=== PATIENT | female | born 1955 | race Two or more races ===

== ENCOUNTER 2024-01-10 03:16 | Inpatient (IN) | payer MEDICAID, OTHER ==
[2024-01-10] VITALS (85 sets, daily range): BP systolic 85–167; BP diastolic 40–104; PULSE 46–95; RESP 9–32; TEMP 97.9–98.4; O2SAT 92–100
[~2024-01-10] VITALS: Ht 157.5 cm; Wt 74.3 kg
[2024-01-10] MEDS: HEPARIN SODIUM (PORCINE) 5000 UNITS/ML 1ML VIAL IV ONE ×3 (03:19→22:18)
[2024-01-10] MEDS: MORPHINE SULFATE INJ 2 MG/ml SYRG IV ONE (03:20)
[2024-01-10] MEDS: NITROGLYCERIN 2% OINT 1GM PKG TD ONE ×2 (03:20→03:47)
[2024-01-10] MEDS: ONDANSETRON HCL 4 MG/2 ML VIAL IV ONE (03:20)
[2024-01-10 03:38] LABS: Basophils # (auto) 0.1 10 ^3/uL (0-0.2); Basophils % (auto) 0.6 % (0.0-2.0); Eosinophils # (auto) 0.2 10 ^3/uL (0-0.8); Eosinophils % (auto) 1.9 % (0.0-7.0); Hematocrit 40.7 % (36.0-46.0); Hemoglobin 13.5 g/dL (12.2-16.2); Lymphocytes # (auto) 2.3 10 ^3/uL (0.4-5.4); Lymphocytes % (auto) 24.7 % (10.0-50.0); Mean Corpuscular Hemoglobin 29.1 pg (28.0-32.0); Mean Corpuscular Hgb Conc. 33.2 g/dL (32.0-36.0); Mean Corpuscular Volume 87.6 fL (80.0-100.0); Monocytes # (auto) 0.6 10 ^3/uL (0-1.3); Monocytes % (auto) 6.9 % (0.0-12.0); Neutrophils # (auto) 6.1 10 ^3/uL (1.6-8.6); Neutrophils % (auto) 65.9 % (37.0-80.0); Red Blood Cells 4.64 10^6/uL (4.0-5.20); White Blood Cell 9.2 10^3/uL (4.4-10.8)
[2024-01-10] MEDS: MORPHINE SULFATE INJ 2 MG/ml SYRG ONE (03:47)
[2024-01-10] MEDS: ONDANSETRON HCL 4 MG/2 ML VIAL ONE (03:47)
[2024-01-10] MEDS: HEPARIN SODIUM (PORCINE) 5000 UNITS/ML 1ML VIAL ONE (03:48)
[2024-01-10] MEDS ORDERED: METF-371 PO (03:52)
[2024-01-10] MEDS ORDERED: GLIP5TAB21 PO (03:52)
[2024-01-10 03:56] LABS: Alanine Aminotransferase 12 U/L (7-40); Albumin 3.8 g/dL (3.2-4.8); Alkaline Phosphatase 135 U/L (46-116); Anion Gap 7 (5-15); Aspartate Aminotransferase 14 U/L (13-40); BUN/Creatinine Ratio 19.6 (10.0-20.0); Bilirubin, Total 0.4 mg/dL (0.2-1.0); Blood Urea Nitrogen 18 mg/dL (9-23); Calcium 9.3 mg/dL (8.7-10.4); Carbon Dioxide 23 mmol/L (20-30); Chloride 100 mmol/L (98-107); Magnesium 1.6 mg/dL (1.6-2.6)
[2024-01-10] MEDS: MIDAZOLAM HCL 2MG/2ML 2ml VIAL (1mg/ml) ONE (04:04)
[2024-01-10] MEDS: fentaNYL CITRATE 100 MCG/2 ML VL ONE (04:04)
[2024-01-10] MEDS: SODIUM CHL 0.9% 50 ML ONE (04:04)
[2024-01-10] MEDS: ANGIOMAX 250 MG VIAL IV ONE (04:04)
[2024-01-10] MEDS: LIDOCAINE 2%HCL (LOCAL ANESTH.) INJ 10ml MDV ONE (04:06)
[2024-01-10 04:16] LABS: Sodium 130 mmol/L (136-145)
[2024-01-10 04:17] LABS: Glucose 435 mg/dL (74-106)
[2024-01-10] MEDS: LABETALOL HCL 5 MG/ML ML 20ML VIAL IV ONE (04:23)
[2024-01-10] MEDS: EPTIFIBATIDE INJ (2MG/ML) 10ML VIAL IV ONE (04:35)
[2024-01-10 04:40] LABS: Urine Bacteria MANY /hpf (None Seen); Urine Blood Negative /uL (Negative); Urine Budding Yeast OCCASIONAL /hpf (None Seen); Urine Clarity Turbid (Clear); Urine Hyaline Cast FEW /lpf (0 - 2); Urine Mucus FEW (None Seen); Urine Protein, UAD 2+ (Negative); Urine Specific Gravity 1.016 (1.001-1.035); Urine Urobilinogen Normal (Negative); Urine WBC 61 /hpf (0 - 5); Urine pH 6.5 (5.0-9.0)
[2024-01-10 04:51] LABS: Urine Color STRAW (Yellow)
[2024-01-10] MEDS: niCARdipine 25 MG/10 ML VIAL IV ONE (04:51)
[2024-01-10] MEDS: IODIXANOL 320MG/ML 100ML BTL IV ONE (04:55)
[2024-01-10] MEDS: NOREPINEPHRINE 8 MG/250ML KIT 250 ML IV ONE (05:13)
[2024-01-10] MEDS: HEPARIN DRIP/D5W 100UNITS/ML 250 ML IV ONE (05:31)
[2024-01-10] MEDS: CLOPIDOGREL BISULFATE 75 MG TAB ONE ×2 (05:39→05:41)
[2024-01-10] MEDS: HEPARIN DRIP/D5W 100UNITS/ML 250 ML IV SCH (07:00)
[2024-01-10] MEDS ORDERED: NITROGLYCERIN 0.4 MG SL TAB SL PRN (07:00)
[2024-01-10] MEDS ORDERED: MORPHINE SULFATE INJ 2 MG/ml SYRG IV PRN (07:00)
[2024-01-10] MEDS: ONDANSETRON HCL 4 MG/2 ML VIAL IV SCH (07:00)
[2024-01-10] MEDS: MORPHINE SULFATE INJ 2 MG/ml SYRG IV SCH (07:00)
[2024-01-10 07:10] LABS: INR 0.97 (0.9-1.15); Partial Thromboplastin Time 24.3 SEC (24.5-34.5); Prothrombin Time 10.3 sec (9.3-11.8)
[2024-01-10] MEDS ORDERED: DEXTROSE (50%) 50ML SYRG IV PRN (07:45)
[2024-01-10] MEDS: CARVEDILOL 3.125 MG TAB PO SCH (08:39)
[2024-01-10] MEDS: CARVEDILOL 3.125 MG TAB PO ONE (10:03)
[2024-01-10] MEDS: cefTRIAXone 1GM/50ML D5W 50 ML IV ONE (10:03)
[2024-01-10] MEDS: PANTOPRAZOLE 40 MG/10 ML VIAL INJ IV SCH (10:04)
[2024-01-10] MEDS: LISINOPRIL 5 MG TAB PO SCH (10:04)
[2024-01-10] MEDS: ACCU-CHEK COMFORT CURVE STRIP VI SCH (10:05)
[2024-01-10] MEDS: EPTIFIBATIDE DRIP(0.75MG/ML) 100 ML IV SCH (10:08)
[2024-01-10] MEDS: InsuLIN REG 1unit/0.01ml Soln (100units/ml) SC SCH (10:17)
[2024-01-10 13:30] LABS: INR 0.98 (0.9-1.15); Partial Thromboplastin Time 29.2 SEC (24.5-34.5); Prothrombin Time 10.4 sec (9.3-11.8)
[2024-01-10] MEDS: NOREPINEPHRINE 8 MG/250ML KIT 250 ML IV SCH ×2 (17:31→18:30)
[2024-01-10] MEDS ORDERED: ONDANSETRON HCL 4 MG/2 ML VIAL IV PRN (20:00)
[2024-01-10] MEDS: MAGNESIUM SULFATE 1GM/100ML 100 ML IV SCH (20:48)
[2024-01-10] MEDS: FUROSEMIDE 40 MG/4 ML VIAL IV ONE (20:48)
[2024-01-10 22:00] LABS: INR 0.97 (0.9-1.15); Partial Thromboplastin Time 30.4 SEC (24.5-34.5); Prothrombin Time 10.3 sec (9.3-11.8)
[2024-01-10] MEDS: ATORVASTATIN 20 MG TAB PO SCH (22:17)
[2024-01-10] MEDS: MORPHINE SULFATE INJ 2 MG/ml SYRG IV PRN (22:34)
[2024-01-11] VITALS (88 sets, daily range): BP systolic 88–143; BP diastolic 46–81; PULSE 56–100; RESP 12–26; TEMP 97.7–98.4; O2SAT 92–99
[2024-01-11 04:29] LABS: Basophils # (auto) 0 10 ^3/uL (0-0.2); Basophils % (auto) 0.3 % (0.0-2.0); Eosinophils # (auto) 0.1 10 ^3/uL (0-0.8); Eosinophils % (auto) 0.6 % (0.0-7.0); Hematocrit 38.2 % (36.0-46.0); Hemoglobin 12.7 g/dL (12.2-16.2); Lymphocytes % (auto) 16.7 % (10.0-50.0); Mean Corpuscular Hemoglobin 29.6 pg (28.0-32.0); Mean Corpuscular Hgb Conc. 33.2 g/dL (32.0-36.0); Monocytes % (auto) 7.9 % (0.0-12.0); Neutrophils % (auto) 74.5 % (37.0-80.0); Red Blood Cells 4.29 10^6/uL (4.0-5.20); White Blood Cell 12.1 10^3/uL (4.4-10.8)
[2024-01-11 04:51] LABS: Alanine Aminotransferase 68 U/L (7-40); Albumin 3.3 g/dL (3.2-4.8); Alkaline Phosphatase 84 U/L (46-116); Anion Gap 10 (5-15); Aspartate Aminotransferase 304 U/L (13-40); BUN/Creatinine Ratio 20.2 (10.0-20.0); Bilirubin, Total 0.5 mg/dL (0.2-1.0); Blood Urea Nitrogen 20 mg/dL (9-23); Calcium 9.1 mg/dL (8.5-10.1); Carbon Dioxide 21 mmol/L (20-30); Chloride 100 mmol/L (98-107); Glucose 155 mg/dL (74-106); Potassium 3.5 mmol/L (3.5-5.1); Sodium 131 mmol/L (136-145); Total Protein 6.3 g/dL (5.7-8.2)
[2024-01-11 05:09] LABS: Magnesium 2.7 mg/dL (1.6-2.6)
[2024-01-11] MEDS: Glucerna Carbsteady SHAKE Vanilla 8oz PO SCH (09:36)
[2024-01-11] MEDS: CLOPIDOGREL BISULFATE 75 MG TAB PO SCH (10:08)
[2024-01-11] MEDS: FUROSEMIDE 20 MG/2 ML VIAL IV SCH (10:08)
[2024-01-11] MEDS: ASPirin 81 mg TAB PO SCH (10:08)
[2024-01-11 10:30] LABS: INR 0.97 (0.9-1.15); Partial Thromboplastin Time 56.9 SEC (24.5-34.5); Prothrombin Time 10.3 sec (9.3-11.8)
[2024-01-11] MEDS: EPTIFIBATIDE DRIP(0.75MG/ML) 100 ML IV ONE (11:09)
[2024-01-11] MEDS: EPTIFIBATIDE DRIP(0.75MG/ML) 100 ML IV SCH (11:53)
[2024-01-11] MEDS: DOCUSATE SOD 100 MG CAP PO PRN (13:02)
[2024-01-11] MEDS: POTASSIUM CHL 20 Meq TABLET PO ONE (13:02)
[2024-01-11] MEDS: cefTRIAXone 1GM/50ML D5W 50 ML IV ONE (13:36)
[2024-01-11 16:15] LABS: INR 0.96 (0.9-1.15); Partial Thromboplastin Time 45.3 SEC (24.5-34.5); Prothrombin Time 10.2 sec (9.3-11.8)
[2024-01-11] MEDS: ANGIOMAX 250 MG VIAL IV ONE (16:56)
[2024-01-11] MEDS: MIDAZOLAM HCL 2MG/2ML 2ml VIAL (1mg/ml) ONE ×2 (16:56→20:09)
[2024-01-11] MEDS: fentaNYL CITRATE 100 MCG/2 ML VL ONE (16:56)
[2024-01-11] MEDS: IODIXANOL 320MG/ML 100ML BTL IV ONE ×2 (16:57→18:47)
[2024-01-11] MEDS: LIDOCAINE 2%HCL (LOCAL ANESTH.) INJ 20ML MDV ONE (16:57)
[2024-01-11] MEDS: SODIUM CHL 0.9% 0 ML ONE (16:57)
[2024-01-11] MEDS ORDERED: HEPARIN DRIP/D5W 100UNITS/ML 250 ML IV SCH (17:30)
[2024-01-11] MEDS: VERAPAMIL 2.5MG/ML INJ 2ML VIAL IV ONE (17:45)
[2024-01-11] MEDS: LIDOCAINE 2% (LOCAL ANESTH.) PF 5ml SDV ONE (19:23)
[2024-01-12] VITALS (26 sets, daily range): BP systolic 103–156; BP diastolic 50–80; PULSE 78–98; RESP 12–22; TEMP 98–99.6; O2SAT 94–100
[2024-01-12] MEDS: INSULIN LANTUS (GLARGINE) 1 /0.01ml (100units/ml) SC ONE (00:09)
[2024-01-12 03:57] LABS: Basophils # (auto) 0 10 ^3/uL (0-0.2); Basophils % (auto) 0.3 % (0.0-2.0); Eosinophils # (auto) 0.1 10 ^3/uL (0-0.8); Eosinophils % (auto) 0.7 % (0.0-7.0); Hematocrit 39.2 % (36.0-46.0); Hemoglobin 13.2 g/dL (12.2-16.2); Lymphocytes # (auto) 1.5 10 ^3/uL (0.4-5.4); Lymphocytes % (auto) 15.7 % (10.0-50.0); Mean Corpuscular Hemoglobin 29.5 pg (28.0-32.0); Mean Corpuscular Hgb Conc. 33.5 g/dL (32.0-36.0); Monocytes # (auto) 0.8 10 ^3/uL (0-1.3); Monocytes % (auto) 8.5 % (0.0-12.0); Neutrophils # (auto) 7.2 10 ^3/uL (1.6-8.6); Neutrophils % (auto) 74.8 % (37.0-80.0); Nucleated Red Blood Cells % 0.1 %; Red Blood Cells 4.46 10^6/uL (4.0-5.20); Red Cell Distribution Width 14.2 % (11.8-14.3); White Blood Cell 9.6 10^3/uL (4.4-10.8)
[2024-01-12] MEDS: EPTIFIBATIDE DRIP(0.75MG/ML) 100 ML IV ONE (04:04)
[2024-01-12 04:10] LABS: INR 0.92 (0.9-1.15); Partial Thromboplastin Time 26.9 SEC (24.5-34.5); Prothrombin Time 9.8 sec (9.3-11.8)
[2024-01-12 04:16] LABS: Alanine Aminotransferase 50 U/L (7-40); Albumin 3.4 g/dL (3.2-4.8); Alkaline Phosphatase 104 U/L (46-116); Anion Gap 6 (5-15); Aspartate Aminotransferase 139 U/L (13-40); Bilirubin, Total 0.4 mg/dL (0.2-1.0); Blood Urea Nitrogen 27 mg/dL (9-23); Calcium 9.1 mg/dL (8.5-10.1); Carbon Dioxide 23 mmol/L (20-30); Chloride 103 mmol/L (98-107); Glucose 328 mg/dL (74-106); Potassium 4.4 mmol/L (3.5-5.1); Sodium 132 mmol/L (136-145); Total Protein 6.6 g/dL (5.7-8.2)
[2024-01-12] MEDS: cefTRIAXone 1GM/50ML D5W 50 ML IV SCH (08:47)
[2024-01-12] MEDS: EPTIFIBATIDE DRIP(0.75MG/ML) 100 ML IV SCH (09:45)
[2024-01-12] MEDS: INSULIN LANTUS (GLARGINE) 1 /0.01ml (100units/ml) SC SCH (10:00)
[2024-01-13] VITALS (8 sets, daily range): BP systolic 103–127; BP diastolic 53–68; PULSE 82–98; RESP 17–20; TEMP 98.2–98.8; O2SAT 92–98
[2024-01-13] MEDS ORDERED: DEXTROSE (50%) 50ML SYRG IV PRN (10:15)
[2024-01-13] MEDS: ACETAMINOPHEN 500 MG TAB PO PRN (11:10)
[2024-01-13] MEDS: ACCU-CHEK COMFORT CURVE STRIP VI SCH (12:17)
[2024-01-13] MEDS: InsuLIN REG 1unit/0.01ml Soln (100units/ml) SC SCH ×2 (12:20→21:46)
[2024-01-13 13:13] LABS: Magnesium 2.2 mg/dL (1.6-2.6)
[2024-01-14] VITALS (8 sets, daily range): BP systolic 103–123; BP diastolic 56–78; PULSE 69–91; RESP 17–20; TEMP 97.8–98.4; O2SAT 90–98
[2024-01-14 06:21] LABS: Basophils # (auto) 0 10 ^3/uL (0-0.2); Basophils % (auto) 0.3 % (0.0-2.0); Eosinophils # (auto) 0.2 10 ^3/uL (0-0.8); Eosinophils % (auto) 1.8 % (0.0-7.0); Hematocrit 33.7 % (36.0-46.0); Hemoglobin 11.2 g/dL (12.2-16.2); Lymphocytes # (auto) 1.4 10 ^3/uL (0.4-5.4); Lymphocytes % (auto) 12.6 % (10.0-50.0); Mean Corpuscular Hemoglobin 29.6 pg (28.0-32.0); Mean Corpuscular Hgb Conc. 33.4 g/dL (32.0-36.0); Mean Corpuscular Volume 88.6 fL (80.0-100.0); Monocytes # (auto) 0.9 10 ^3/uL (0-1.3); Monocytes % (auto) 8.4 % (0.0-12.0); Neutrophils # (auto) 8.6 10 ^3/uL (1.6-8.6); Neutrophils % (auto) 76.9 % (37.0-80.0); Red Cell Distribution Width 14.1 % (11.8-14.3); White Blood Cell 11.2 10^3/uL (4.4-10.8)
[2024-01-14 06:27] LABS: Calcium 9.6 mg/dL (8.5-10.1); Chloride 98 mmol/L (98-107); Potassium 4.9 mmol/L (3.5-5.1); Sodium 129 mmol/L (136-145)
[2024-01-14 06:28] LABS: Anion Gap 6 (5-15); Carbon Dioxide 25 mmol/L (20-30)
[2024-01-14 06:34] LABS: BUN/Creatinine Ratio 36.4 (10.0-20.0); Blood Urea Nitrogen 36 mg/dL (9-23); Glucose 178 mg/dL (74-106)
[2024-01-14 07:20] LABS: Magnesium 2.1 mg/dL (1.6-2.6)
[2024-01-14] MEDS: FUROSEMIDE 40 MG TAB PO SCH (09:42)
[2024-01-15] VITALS (7 sets, daily range): BP systolic 107–129; BP diastolic 54–69; PULSE 66–79; RESP 16–18; TEMP 97.7–98.8; O2SAT 95–98
[2024-01-15 07:17] LABS: Anion Gap 7 (5-15); Carbon Dioxide 25 mmol/L (20-30); Chloride 101 mmol/L (98-107); Potassium 4.3 mmol/L (3.5-5.1); Sodium 133 mmol/L (136-145)
[2024-01-15 07:18] LABS: Calcium 9.5 mg/dL (8.5-10.1)
[2024-01-15 07:23] LABS: BUN/Creatinine Ratio 32.6 (10.0-20.0); Blood Urea Nitrogen 30 mg/dL (9-23); Glucose 91 mg/dL (74-106)
[2024-01-15] MEDS: FUROSEMIDE 20 MG/2 ML VIAL IV ONE (12:50)
[2024-01-15] MEDS: PANTOPRAZOLE 40 MG TAB PO ONE (12:50)
[2024-01-15] MEDS: HYDROcodone-ACET 5/325MG TAB PO PRN (21:12)
[2024-01-16 01:00] VITALS: BP 122/62; PULSE 74; RESP 20; TEMP 98.2; O2SAT 100
[2024-01-16 05:00] VITALS: BP 110/56; PULSE 76; RESP 19; TEMP 98; O2SAT 96
[2024-01-16 08:00] VITALS: PULSE 64; PULSE 71; RESP 17; O2SAT 91
[2024-01-16 08:33] VITALS: BP 115/58; PULSE 64; RESP 17; TEMP 97.7; O2SAT 91
[2024-01-16] MEDS: PANTOPRAZOLE 40 MG TAB PO SCH (10:13)
[2024-01-16] MEDS ORDERED: ATOR-507 PO ×2 (10:27→12:24)
[2024-01-16] MEDS ORDERED: CLOP75TA70 PO ×2 (10:27→12:24)
[2024-01-16] MEDS ORDERED: ASPI-325 PO ×2 (10:27→12:24)
[2024-01-16] MEDS ORDERED: NITR0.4S29 SL ×2 (10:27→12:24)
[2024-01-16] MEDS ORDERED: LEVO500T91 PO ×2 (10:27→12:25)
[2024-01-16] MEDS ORDERED: CARV-214 PO ×2 (10:27→12:24)
[2024-01-16] MEDS ORDERED: FURO40TA4 PO ×2 (10:27→12:24)
[2024-01-16 10:55] LABS: Anion Gap 6 (5-15); Calcium 9.5 mg/dL (8.5-10.1); Carbon Dioxide 25 mmol/L (20-30); Chloride 99 mmol/L (98-107); Potassium 4.8 mmol/L (3.5-5.1); Sodium 130 mmol/L (136-145)
[2024-01-16 11:01] LABS: BUN/Creatinine Ratio 30.2 (10.0-20.0); Blood Urea Nitrogen 32 mg/dL (9-23); Glucose 278 mg/dL (74-106)
[2024-01-16 11:41] VITALS: BP 115/58; PULSE 77; TEMP 36.5
[2024-01-16 11:54] VITALS: BP 104/61; PULSE 78; RESP 16; TEMP 97.4; O2SAT 95
[2024-01-16] MEDS ORDERED: LISI20TA56 PO (12:24)
== END 2024-01-16 16:00 | disposition home or self-care (01) | DRG 174 ==
LOC: ER 03:16 → EDBD 03:16 → ER 04:10 → CATH 1 06:44 → TELE 06:50 → ICU WEST 06:51 → TELE-CENTR 01-12 15:30
PROVIDERS: ADMIT Internal Medicine; ATTEND Internal Medicine
PROC: 027035Z Dilation of Coronary Artery, One Artery with Two Drug-eluting Intraluminal Devices, Percutaneous Approach (ICD-10-PCS; principal; 2024-01-10)
PROC: 5A02210 Assistance with Cardiac Output using Balloon Pump, Continuous (ICD-10-PCS; 2024-01-10)
PROC: B211YZZ Fluoroscopy of Multiple Coronary Arteries using Other Contrast (ICD-10-PCS; 2024-01-10)
PROC: 02C03ZZ Extirpation of Matter from Coronary Artery, One Artery, Percutaneous Approach (ICD-10-PCS; 2024-01-10)
PROC: 4A133B1 Monitoring of Arterial Pressure, Peripheral, Percutaneous Approach (ICD-10-PCS; 2024-01-10)
PROC: 4A023N7 Measurement of Cardiac Sampling and Pressure, Left Heart, Percutaneous Approach (ICD-10-PCS; 2024-01-10)
PROC: 3E073PZ Introduction of Platelet Inhibitor into Coronary Artery, Percutaneous Approach (ICD-10-PCS; 2024-01-10)
PROC: 05HB33Z Insertion of Infusion Device into Right Basilic Vein, Percutaneous Approach (ICD-10-PCS; 2024-01-10)
PROC: B54MZZA Ultrasonography of Right Upper Extremity Veins, Guidance (ICD-10-PCS; 2024-01-10)
PROC: B215YZZ Fluoroscopy of Left Heart using Other Contrast (ICD-10-PCS; 2024-01-10)
PROC: B211YZZ Fluoroscopy of Multiple Coronary Arteries using Other Contrast (ICD-10-PCS; 2024-01-11)
PROC: 4A133B1 Monitoring of Arterial Pressure, Peripheral, Percutaneous Approach (ICD-10-PCS; 2024-01-11)
PROC: B34HZZZ Ultrasonography of Right Upper Extremity Arteries (ICD-10-PCS; 2024-01-11)
PROC: 027236Z Dilation of Coronary Artery, Three Arteries with Three Drug-eluting Intraluminal Devices, Percutaneous Approach (ICD-10-PCS; 2024-01-11)
DX: I21.09 ST elevation (STEMI) myocardial infarction involving other coronary artery of anterior wall (principal); R57.0 Cardiogenic shock; I11.0 Hypertensive heart disease with heart failure; I50.41 Acute combined systolic (congestive) and diastolic (congestive) heart failure; E87.1 Hypo-osmolality and hyponatremia; I25.10 Atherosclerotic heart disease of native coronary artery without angina pectoris; N39.0 Urinary tract infection, site not specified; E11.65 Type 2 diabetes mellitus with hyperglycemia; B96.20 Unspecified Escherichia coli [E. coli] as the cause of diseases classified elsewhere; E78.5 Hyperlipidemia, unspecified; I25.2 Old myocardial infarction
CPT/HCPCS: 33967; 36415; 71045; 80048; 80053; 81001; 82962; 83036; 83735; 83880; 84484; 85025; 85610; 85730; 87081; 87086; 87088; 87186; 92941; 92973; 93005; 93306; 93458; 96374; 96375; 97110; 97116; 97163; 97530; 99152; 99291; C1874; C9113; G0378; J1815; J2001; J2250; J2405; Q9967